=== PATIENT | female | born 1950 | race Caucasian/White ===

== ENCOUNTER 2018-08-01 20:03 | Inpatient (IN) | payer OTHER ==
[~2018-08-01] VITALS: Ht 162.6 cm; Wt 77.2 kg
[~2018-08-01 20:03] MED LIST: AMLODIPINE BESY10 MG PO; ASPIR 8181 MG PO; AZITHROMYCIN 2250 MG PO; B-12 COMPL1000 MCG/1 INJECTION; CARISOPRODOL 3350 M1 PO; CARISOPRODOL 3350 MG PO; COZAAR 50 MG TA50 M2 PO; ESTRADIOL 1 MG T1 M1 PO; ETODOLAC500 MG PO; FENOFIBRATE134 MG PO; FENOFIBRATE160 MG PO; FISH OIL 1,001000 M2 PO; HYDROCHLOROTHIA25 M2 PO; LEVOTHYROXIN0.075 MG PO; LISINOPRIL-HCT1 EAC1 PO; LISINOPRIL20 MG PO; LOPRESSOR25 PO; METOPROLOL SUCC25 M1 PO; MOBIC7.5 MG PO; PRILOSEC 10MG C10 MG PO; REQUIP0.5 MG PO; SIMVASTATIN40 MG PO; VALIUM5 MG PO; VENTOLIN HFA 1818 GM INH; VITAMIN D5000 UNI1 PO; ZOLOFT50 MG PO
[2018-08-01 20:13] VITALS: BP 168/77
[2018-08-01 20:47] LABS: ABSOLUTE EOSINOPHILS 0.2 thou/uL (0.0-0.7); ABSOLUTE LYMPHOCYTES 1.2 thou/uL (0.8-5.3); ABSOLUTE MONOCYTES 0.3 thou/uL (0.0-1.2); HEMATOCRIT 35.7 % (37.0-47.0); HEMOGLOBIN 12.1 gm/dL (12.0-15.0); MCV 91.7 fL (80.0-100.0); RDW-CV 12.9 % (10.5-14.5); WBC 3.7 thou/uL (4.0-11.0)
[2018-08-01 20:50] LABS: BASOPHILS 1.1 %; EOSINOPHILS 5.4 %; LYMPHOCYTES 31.6 %; MCHC 33.8 g/dL (28.0-37.0); MONOCYTES 8.8 %; MPV 8.3 fl. (7.2-11.1); NUCLEATED RBCS 0 /100WBC; PLATELET COUNT* 253 thou/uL (150-400); POLYS 53.1 %; RBC 3.89 mil/uL (4.20-5.00)
[2018-08-01 20:54] LABS: ANION GAP 8 mmol/L (7-16); BUN 15 mg/dL (7-18); CALCIUM 9.5 mg/dL (8.5-10.1); CHLORIDE 104 mmol/L (98-107); CO2 29 mmol/L (21-32); GLUCOSE 119 mg/dL (70-99); POTASSIUM 3.6 mmol/L (3.5-5.1); SODIUM 141 mmol/L (136-145)
[2018-08-01 20:56] LABS: PROTIME 10.3 Seconds (9.20-11.50)
[2018-08-01 21:05] LABS: ALBUMIN 3.8 g/dL (3.4-5.0); ALKALINE PHOSPHATASE 43 U/L (46-116); LIPASE 111 U/L (73-393); NT-PRO BRAIN NAT PEPTIDE 689 pg/mL (<300); SGOT 18 U/L (15-37); SGPT 26 U/L (30-65); TOTAL BILIRUBIN 0.2 mg/dL (<0.1-1.0); TOTAL PROTEIN 7.1 g/dL (6.4-8.2); TROPONIN-I LEVEL <0.06 ng/mL (<0.06)
[2018-08-01 21:55] LABS: PLATELET ESTIMATE ADEQUATE
[2018-08-02 04:38] VITALS: BP 138/65
--- NOTE | 2018-08-02 04:54 | NUR ---
PT IS RESTING QUIETLY WITH FAMILY AT BEDSIDE. RESP REG AND UNLABORED SKIN W/D NO C/O OF SOB OR CHEST PAIN. NO ACUTE DISTRESS NOTED. PT HAS AMBULAED X3 TO RESTROOM THIS SHIFT. MONITORS INTACT WITH ALARMS SET. WILL CONTINUE TO MONITOR
[2018-08-02 08:55] VITALS: BP 139/65
--- NOTE | 2018-08-02 10:15 | NUR ---
PT RETURNING FROM CT SCAN
[2018-08-02 12:50] VITALS: BP 164/72
--- NOTE | 2018-08-02 13:11 | NUR ---
PT GIVEN LUNCH TRAY.
[2018-08-02 13:26] VITALS: BP 164/72
[2018-08-02 14:39] VITALS: BP 153/88
--- NOTE | 2018-08-02 14:41 | NUR ---
PT ADMITTED TO ROOM 223 AROUND 1430 WITH DX CP WITH HYPERTENSIVE URGENCY. PT DENIES CP AT THIS TIME. CARDIOLOGY CONSULTED. ANTICIPATE STRESS TEST TOMORROW. TELE SB TO SR. RATE 55-65 BPM. NO OTHER CONCERNS AT THIS TIME. CLWR. WCTM.
--- NOTE | 2018-08-02 15:40 | EKG ---
[place] [address] ELECTROCARDIOGRAM REPORT Name: JAMAR ARRIOLA Room: [address] ADM IN .R.#: [id number] Admission: 08/01/18 Attend Phys: Rissa Olson MD Discharge: Date of : 48 Report #: [id number] THIS REPORT FOR: //name// [facility] ED Test Date: 2018-08-01 Test Time: 20:09:10 Pat Name: JAMAR ARRIOLA Department: Room: [facility] Gender: F Hunting And Fishing Guide: MS : 1950 Requested By: Antoinette Shell Order Number: [id number] MD: Laz Mayorga Measurements Intervals [place] Rate: 79 P: 49 [place]: 186 QRS: 28 QRSD: 94 T: 88 QT: 374 QTc: 429 Interpretive Statements Sinus rhythm Probable left atrial enlargement Repol abnrm suggests ischemia, lateral leads Compared to ECG 11/16/2016 06:20:25 Early repolarization now present Possible ischemia now present T-wave abnormality no longer present Electronically Signed On 08-02-2018 15:40:07 CDT by Laz Mayorga [email or web address] <ELECTRONICALLY SIGNED> By: Laz Mayorga MD, FAC 08/02/18 1540 08 08 Laz Mayorga MD, [facility] /EPI
[2018-08-02 20:00] VITALS: BP 125/63
[2018-08-03] VITALS: BP 116/49
[2018-08-03 04:00] VITALS: BP 115/55
[2018-08-03 05:49] LABS: CHOLESTEROL 189 mg/dL (<200); HDL CHOLESTEROL 38 mg/dL (>40); LDL CHOLESTEROL 116 mg/dL (<100); TRIGLYCERIDE 179 mg/dL (<150); VLDL 36 mg/dL (<40)
[2018-08-03 05:50] LABS: SERUM ASSESSMENT Clear
--- NOTE | 2018-08-03 07:43 | NUR ---
PT CARE ASSUMED AT 1930. SAT MAINTAINED IN RA. ALERT AND ORIENTED X4. CALL LIGHT WITHIN REACH AND BED IN LOW POSITION. C/O PAIN, MEDICATION GIVEN PER EMAR. HOURLY ROUNDING DONE FOR PT SAFETY.
[2018-08-03 08:00] VITALS: BP 166/68
--- NOTE | 2018-08-03 09:50 | CON ---
[address] [address] CONSULTATION Name: JAMAR ARRIOLA Room: [address] IN .R.#: [id number] Admission: 08/01/18 Attend Phys: Rissa Olson MD Discharge: Date of : 48 Report #: [id number] THIS REPORT FOR: //name// CC: Jose Enrique Owen CARDIOLOGY CONSULTATION INDICATION: Chest pain, arm pain and palpitations. 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 From the patient's description, it sounds as if she may have had an anomalous takeoff of coronary artery, traversing between the pulmonary artery and aorta leading to symptoms. Because of this in 2006, she had single-vessel coronary artery bypass grafting. Subsequent to that, she reported no further cardiac symptoms until now. Yesterday morning, she had what was described as a fast heart rate with associated flushing and diaphoresis. She also had some dull chest aching and pain from her elbow to her left hand. She had mild nausea, but no vomiting. She denied any fever, cough, diarrhea or other complaints. Symptoms resolved. In the Emergency Room, the patient was noted to be fairly hypertensive. At the time of my interview, she was pain free. A CT of the chest showed no evidence of pulmonary embolus. Risk factors include hypertension and dyslipidemia. PAST MEDICAL HISTORY: 1. 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 2. Hysterectomy. 3. Cholecystectomy. 4. Tubal ligation. 5. Anxiety. 6. Hypertension. 7. Hyperlipidemia. HOME MEDICATIONS: Albuterol q.4 hours p.r.n., estradiol 1 mg 2 tablets daily, aspirin 81 mg daily, vitamin D 5000 units daily, Requip 0.5 mg at bedtime, Zoloft 100 mg daily, metoprolol tartrate 50 mg b.i.d., losartan 100 mg daily, fish oil 1000 mg b.i.d., omeprazole 40 mg daily, amlodipine 10 mg daily, Soma 350 mg 4 times a day p.r.n., levothyroxine 0.075 mg daily, simvastatin 40 mg at bedtime, fenofibrate 134 mg daily. ALLERGIES: CODEINE AND MORPHINE. FAMILY HISTORY: The patient's father had heart disease in his 70s. SOCIAL HISTORY: The patient quit smoking remotely. [place] [address] CONSULTATION Name: JAMAR ARRIOLA Room: [address]#: [id number] Admission: 08/01/18 Attend Phys: Rissa Olson MD Discharge: Date of : 48 Report #: [id number] PHYSICAL EXAMINATION: VITAL SIGNS: Blood pressure 164/72, pulse 69 and regular. GENERAL: This is a pleasant lady who is in no distress. Mood and affect appropriate. HEENT: Extraocular muscles intact. Mucous membranes are moist. NECK: Shows no jugular venous distention. There are no carotid bruits. CHEST: Reveals clear lung gardner. CARDIOVASCULAR: Reveals regular rhythm without gallop or murmur. ABDOMEN: Reveals normal bowel sounds. The abdomen is soft, nontender. EXTREMITIES: Shows no edema. Peripheral pulses are 2+ and easily palpable. SKIN: Dry. LABORATORY DATA: Reviewed. Electrolytes within normal limits. BUN 15, creatinine 1.0. Serum glucose 119. LFTs within normal limits. Troponin less than 0.06 on 2 separate occasions, third troponin pending. NT-proBNP 689. White blood cell count 3.7, hemoglobin 12.1, platelet count 253,000. CTA of the chest shows no evidence of PE. Chest x-ray is clear. IMPRESSION AND RECOMMENDATIONS: 1. Chest pain. Enzymes thus far are unremarkable. She does have a history of cardiac risk factors including hypertension and dyslipidemia. She has a remote history of coronary artery bypass grafting for anomalous coronary. I believe proceeding with noninvasive stress testing would be in order at this time. 2. Hypertension. We will adjust antihypertensive medications in an effort to improve blood pressure. 3. Hyperlipidemia. Continue medications as outlined above. We will repeat fasting lipid profile at this time. 4. Palpitations. Thus far, in telemetry she has shown sinus rhythm. We will continue telemetry monitoring at this time. <ELECTRONICALLY SIGNED> By: Laz Mayorga MD, FACC 08/03/18 0950 1356 [id number] Mayorga MD, FACC /nt
[2018-08-03 12:00] VITALS: BP 131/69
[2018-08-03] MEDS ORDERED: CARVEDILOL25 MG PO (12:03)
--- NOTE | 2018-08-03 13:09 | NUR ---
Pt is A&O. Resides at home with . Normally active and independent. No DME. No hx of HH or SNF. Hx of cardiac rehab. Pt states that she will have a stress test today, goal is home at sd. Pt informed that she had a home pap approx 2-3 years ago through [facility], but had it returned about 1 month after it was issued. Pt would like to see if she is able to have one issued again. CM contacted Gianna at [facility], faxed Gianna jameson to f/u and determine what is needed to have a new pap issued. Following.
--- NOTE | 2018-08-03 15:52 | NUR ---
ASSUMED PT CARE AT 0800. AOX4, UP AD PAULO. 02 SAT 90'S RA. PT FOR CARDIAC STRESS TEST. PT ADBOMEN SOFT AND ROUND. LAST BM 08/02/18. IV ACCESS INTACT. PT VSS, AM ASSESSMENT CHARTED. MEDS GIVEN PER APR. HOURLY ROUNDING OBSERVED. CALL LIGHT WITHIN REACH WILL CONTINUE TO MONITOR.
[2018-08-03 16:00] VITALS: BP 145/75
[2018-08-03 17:53] VITALS: BP 145/75
--- NOTE | 2018-08-03 17:57 | CARDNUC ---
[place] [address] CARDIAC NUCLEAR IMAGING REPORT Name: JAMAR ARRIOLA Room: [address] IN [facility]#: [id number] Admission: 08/01/18 Attend Phys: Rissa Olson, Discharge: Date of : 48 Date of Service: 08/03/18 1757 Report #: [id number] THIS REPORT FOR: //name// APPROVED REPORT Imaging Protocol: Rest Tc-99m/Stress Tc-99m 1 day Study performed: 08/02/2018 13:40:00 Indication: Chest pain, Dyspnea Patient Location: In-Patient Room #: 223 Stress Tech: Aggie Montalvo Stress Nurse: Sarah Fink RN NM Tech:OFELIA Alvarez Ht: 5 ft 4 in Wt: 166 lbs BSA: 1.81 m2 BMI: 28.49 Medical History Medical History: Angina, CABG R/T CORONARY ANOMALY, SOA, Former Smoke, Hyperlipidemia, Fatigue, HTN. Medications: NTG, ATORVASTATIN, COREG, NORVASC, ASA 81 MG, FENOFIBRATE, LOSARTAN. Allergies: MORPHINE, CODEINE. Cardiac Risk Factors: Age, FHX of CAD, Hyperlipidemia, HTN, SOB, Tobacco History (Current/Recent). Previous Cardiac Procedures: CABG R/T CORONARY ANOMALY/ DEFECT. Pretest Chest Pain Characteristics: No chest pain Exercise History: Indeterminate Physical Disabilities: WEAKNESS/FATIGUE, SOA. Meds Held (24 hrs): COREG, NTG. Resting Data Rest SPECT myocardial perfusion imaging was performed in supine position 30 minutes following the intravenous injection of 11.1 mCi of Tc-99m Sestamibi. Time of rest injection: 1300 Date: 08/03/2018 The images were gated to evaluate regional wall motion and calculate left ventricular ejection fraction. Administration Route: IV Administration Site: Right AC Pharmacologic Stress Pharmacologic stress test was performed by injecting Regadenoson 0.4 [place] [address] CARDIAC NUCLEAR IMAGING REPORT Name: JAMAR ARRIOLA Room: [address] IN [facility]#: [id number] Admission: 08/01/18 Attend Phys: Rissa Olson, Discharge: Date of : 48 Date of Service: 08/03/18 1757 Report #: [id number] mg IV push over 10-15 seconds immediately followed by the intravenous injection of 33.1 mCi of Tc-99m Sestamibi. Time of stress injection: 1440 Date: 08/03/2018 Administration Route: IV Administration Site: Right AC Gated Stress SPECT was performed 40 minutes after stress injection. The images were gated to evaluate regional wall motion and calculate left ventricular ejection fraction. Prone imaging was performed. Stress Test Details Stress Test: Pharmacologic stress testing performed using 0.4 mg of regadenoson per 5 mL given IV over 10 seconds. Reason for pharmacologic stress test: physical limitation, SOA.. HR Max Heart Rate (APMHR): 152 bpm Resting HR: 91 bpm Target HR (85% APMHR): 129 bpm Max HR Achieved: 141 bpm % of APMHR: 92 Recovery HR: 113 bpm BP Resting BP: 168/81 mmHg Max BP: 180/87 mmHg Recovery BP: 174/84 mmHg ECG Resting ECG: Sinus Rhythm Stress ECG: Sinus Tachycardia ST Change: None Arrhythmia: None Recovery ECG: Sinus Rhythm Recovery ST Change: None Recovery Arrhythmia: None Clinical Reason for Termination: Completed protocol Stress Symptoms: None Exercise duration: 0 min 0 sec Exercise capacity: 1.00 METs The patient had no significant symptoms with Lexiscan infusion. Nurse Comments 67 YEAR OLD FEMALE INPATIENT PRESENTED WITH RECENT [place] [address] CARDIAC NUCLEAR IMAGING REPORT Name: JAMAR ARRIOLA Room: [address]#: [id number] Admission: 08/01/18 Attend Phys: Rissa Olson, Discharge: Date of : 48 Date of Service: 08/03/18 1757 Report #: [id number] PATIENT TOLERATED SITTING LEXISCAN WELL. RECOVERY UNREMARKABLE WITH PO CAFFEINE, EFFECTIVE. PATIENT ESCORTED VIA WHEELCHAIR BY STAFF TO NUCLEAR MEDICINE FOR IMAGES. PATIENT WAS STABLE WITH NO COMPLAINTS AT THAT TIME. Stress ECG Conclusion The baseline 12-lead EKG shows sinus rhythm with nonspecific ST segment depression. EKGs obtained during and post Lexiscan infusion show sinus rhythm and sinus tachycardia with nonspecific ST segment depression that is not significantly changed from baseline EKG. There were no stress-induced arrhythmias. Study Quality Study: Good Artifact: No artifact Study Data At rest, the left ventricular ejection fraction was 89%.. Post stress, the left ventricular ejection was 83%.. TID = 0.91. Perfusion Normal left ventricular perfusion. Wall Motion Normal left ventricular wall motion. Nuclear Conclusion ECG Findings: non-diagnostic Clinical Findings: negative for ischemia Nuclear Findings: negative for ischemia Exercise Capacity: not assessed Left Ventricular Function: normal Risk Study: low Myocardial perfusion images show no defect to suggest infarct or ischemia. Left ventricular systolic function appears normal on gated studies. This is a low risk study. <Conclusion> The baseline 12-lead EKG shows sinus rhythm with nonspecific ST segment depression. EKGs obtained during and post Lexiscan infusion show sinus rhythm and sinus tachycardia with nons[place] [address] CARDIAC NUCLEAR IMAGING REPORT Name: JAMAR ARRIOLA Room: [address] IN .#: [id number] Admission: 08/01/18 Attend Phys: Rissa Olson, Discharge: Date of : 48 Date of Service: 08/03/18 1757 Report #: [id number] depression that is not significantly changed from baseline EKG. There were no stress-induced arrhythmias. <ELECTRONICALLY SIGNED> By: Laz Mayorga MD, FACC 08/03/181756 56 56 Laz Mayorga MD, FACC /INF
--- NOTE | 2018-08-03 18:42 | NUR ---
DISCHARGED PLAN DISCUSSED WITH PT. PT HAD CARDIAC STRESS TEST, CARDIOLOGY OK TO DC. IV, TELE REMOVED. REMINDED TO FOLLOW UP WITH PCP, CARDIOLOGY. ALL BELONGINGS PACKED AND CHECKED. LEFT THE UNIT AMBULATORY AT 1840
== END 2018-08-03 18:48 | disposition home or self-care (01) | DRG 305 ==
LOC: M.ERS 20:03 → M.TBA-ER 21:40 → M.2W 08-02 14:30
PROVIDERS: Internal Medicine Cardiovascular Disease; Personal Emergency Response Attendant; ADMIT Internal Medicine
DX: I16.0 Hypertensive urgency (principal); I10 Essential (primary) hypertension; R07.9 Chest pain, unspecified; I25.10 Atherosclerotic heart disease of native coronary artery without angina pectoris; E78.5 Hyperlipidemia, unspecified; E78.00 Pure hypercholesterolemia, unspecified; F41.9 Anxiety disorder, unspecified; Z90.710 Acquired absence of both cervix and uterus; Z90.49 Acquired absence of other specified parts of digestive tract; Z79.82 Long term (current) use of aspirin; Z79.899 Other long term (current) drug therapy; Z88.0 Allergy status to penicillin; Z95.1 Presence of aortocoronary bypass graft; Z82.49 Family history of ischemic heart disease and other diseases of the circulatory system; Z87.891 Personal history of nicotine dependence

== ENCOUNTER 2020-07-20 12:37 | Inpatient (IN) | payer OTHER ==
[~2020-07-20] VITALS: Ht 162.6 cm; Wt 76.7 kg
[~2020-07-20 12:37] MED LIST changes: +CARVEDILOL25 MG PO
[2020-07-20 12:42] VITALS: BP 150/73
[2020-07-20 13:26] LABS: ABSOLUTE EOSINOPHILS 0.2 thou/uL (0.0-0.7); ABSOLUTE MONOCYTES 0.4 thou/uL (0.0-1.2); ABSOLUTE NEUTROPHILS 2.5 thou/uL (1.6-8.1); BASOPHILS 0.8 %; EOSINOPHILS 4.4 %; HEMATOCRIT 31.1 % (37.0-47.0); HEMOGLOBIN 10.6 gm/dL (12.0-15.0); LYMPHOCYTES 24.9 %; MCHC 33.9 g/dL (28.0-37.0); MCV 91.4 fL (80.0-100.0); MONOCYTES 10.5 %; MPV 7.8 fl. (7.2-11.1); NUCLEATED RBCS 0 /100WBC; PLATELET COUNT* 248 thou/uL (150-400); POLYS 59.4 %; RBC 3.41 mil/uL (4.20-5.00); WBC 4.2 thou/uL (4.0-11.0)
[2020-07-20 13:35] LABS: CREATININE 1.2 mg/dL (0.6-1.3); POTASSIUM 4.2 mmol/L (3.5-5.1)
[2020-07-20 13:44] LABS: ALBUMIN 3.2 g/dL (3.4-5.0); MAGNESIUM 1.7 mg/dL (1.8-2.4); TOTAL BILIRUBIN 0.1 mg/dL (<0.1-1.0); TOTAL PROTEIN 6.4 g/dL (6.4-8.2)
[2020-07-20 15:30] VITALS: BP 148/65
[2020-07-20 16:05] VITALS: BP 163/71
[2020-07-21] VITALS (14 sets, daily range): BP systolic 93–177; BP diastolic 38–77
[2020-07-21 04:28] LABS: ABSOLUTE BASOPHILS 0.1 thou/uL (0.0-0.2); ABSOLUTE EOSINOPHILS 0.2 thou/uL (0.0-0.7); ABSOLUTE LYMPHOCYTES 1.1 thou/uL (0.8-5.3); ABSOLUTE MONOCYTES 0.4 thou/uL (0.0-1.2); ABSOLUTE NEUTROPHILS 2.3 thou/uL (1.6-8.1); BASOPHILS 1.3 %; EOSINOPHILS 5.8 %; HEMATOCRIT 29.5 % (37.0-47.0); LYMPHOCYTES 26.1 %; MCH 31.3 pg (26.0-34.0); MONOCYTES 10.2 %; NUCLEATED RBCS 0 /100WBC; PLATELET COUNT* 234 thou/uL (150-400); POLYS 56.6 %; RDW-CV 13.2 % (10.5-14.5)
[2020-07-21 04:31] LABS: CALCIUM 8.6 mg/dL (8.5-10.1); POTASSIUM 4.2 mmol/L (3.5-5.1)
--- NOTE | 2020-07-21 11:05 | EKG ---
[place] [address] ELECTROCARDIOGRAM REPORT Name: JAMAR ARRIOLA Room: [address] ADM IN .R.#: [id number] Admission: 07/20/20 Attend Phys: Prince Ibarra, Discharge: Date of : 48 Date of Service: 07/20/20 1243 Report #: [id number] THIS REPORT FOR: //name// [facility] ED Test Date: 2020-07-20 Test Time: 12:43:03 Pat Name: JAMAR ARRIOLA Department: Room: [facility] Gender: F Transformation Specialist: KEVEN : 1950 Requested By: Martin Boudreaux Order Number: [id number] MD: Sb Dixon Measurements Intervals [place] Rate: 63 P: 60 SD: 188 QRS: 39 QRSD: 97 T: 55 QT: 404 QTc: 414 Interpretive Statements Sinus rhythm Compared to ECG 08/01/2018 20:09:10 Early repolarization no longer present Possible ischemia no longer present Electronically Signed On 07-21-2020 11:05:08 CDT by Sb Dixon [email or web address] <ELECTRONICALLY SIGNED> By: Sb Dixon MD, [facility] 07/21/20 1105 1243 1243 Sb Dixon MD, [facility] /EPI
--- NOTE | 2020-07-22 11:33 | CARD ---
[address] [address] CARDIAC CATH REPORT Name: JAMAR ARRIOLA Room: [address] IN [facility]#: [id number] Admission: 07/20/20 Attend Phys: Prince Ibarra MD Discharge: 07/21/20 Date of : 48 Report #: [id number] THIS REPORT FOR: cc: Jose Enrique Martinez Bradley L. DO Blick, David R. MD [facility] ~ APPROVED REPORT Study performed: 07/21/2020 09:15:06 Patient Details Patient Status: In-Patient Room #: 211 The patient is a 69 year-old female Event Personnel Sb Dixon Factory Maintenance Technician, Alisa Monreal RN RN, Angel Wells RECOVERY ROOM NURSE Scrub, Soniya Qureshi RTR Monitor Procedures Performed Art Access - R femoral artery Left Heart Cath Coronaries, Bypass Grafts Supravalvular Aortography Injection Hemostasis w/ Angioseal Indication Chest pain Risk Factors Arterial Hypertension, Hypercholesterolemia, Coronary Artery Disease Previous Procedures/Diagnoses Previous CABG Admission/Lab Medications/Medications given during procedure Midazolam (Versed) IV 1 mg, Oxygen Nasal cannula 2 l per min, 0.9% Sodium Chloride IV 75 ml per hr, Lidocaine Subcut 14 ml, Zofran (Ondansetron) IV 4 mg, Fentanyl IV 25 mcg Procedure Narrative The patient was brought electively to the Cardiac Catheterization Laboratory and was prepped and draped in a sterile manner. The right femoral was infiltrated with 2% Lidocaine subcutaneous anesthesia. IV conscious sedation was used throughout [place] [address] CARDIAC CATH REPORT Name: JAMAR ARRIOLA Room: [address]#: [id number] Admission: 07/20/20 Attend Phys: Prince Ibarra MD Discharge: 07/21/20 Date of : 48 Report #: [id number] monitoring and was performed in the presence of a registered nurse who was an independent trained observer other than the physician performing the procedure. A Ultimum 6 Fr sheath was inserted into the right femoral artery. Coronary angiography was performed using coronary diagnostic catheters. The right coronary system was accessed and visualized with a Diagnostic 6 Fr JR 4 catheter. The left ventricle was accessed and visualized with a Diagnostic 6 Fr Pigtail catheter. Left ventricular/Aortic Valve gradient assessed via catheter pullback. Left ventriculogram was performed in RYDER projection. An aortogram of the ascending aorta was performed. Closure device was deployed with a 6 Fr Angioseal STS 6Fr. The patient tolerated the procedure well and there were no complications associated with the procedure. There was no hematoma. The EDWARDS graft to the Circ and OM was accessed and visualized with a Diagnositc 6 Fr IM catheter. The MEI was accessed and visualized with a Diagnostic 6 Fr IM catheter. Aortic root injection was performed with a pigtail catheter. Intraoperative Conscious Sedation Sedation start time: 952 Case end Time: 1036 Fentanyl 50 mcg Versed 2 mg Fluoro Time: 7.2 minutes Dose: DAP 53980 cGycm2 743 mGy Contrast Type and Amount: Omnipaque 220 ml Coronary Angiography The patient's coronary anatomy is right dominant. [place] Artery Percent Stenosis Grafts (Complete if Previous CABG=Yes: Percent Stenosis) EDWARDS graft to the 3rd marginal artery of the circumflex had a 70% mid stenosis noted. EDWARDS catheter could not be advanced to the takeoff of the MEI, but a flush injection into the right inominate artery appeared to show that the MEI was not used for a bypass conduit. Diagnostic Cath Left Main No left main artery was noted to lee from the left coronary cusp. 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 Circumflex Anomalous circumflex was noted [place] [address] CARDIAC CATH REPORT Name: JAMAR ARRIOLA Room: [address]#: [id number] Admission: 07/20/20 Attend Phys: Prince Ibarra MD Discharge: 07/21/20 Date of : 48 Report #: [id number] RCA. OM1 60% ostial stenosis OM3 50% ostial stenosis Right Coronary 30% proximal stenosis Left Ventriculography The left ventricular ejection fraction is estimated to be 60-65%. Left ventricular wall motion abnormalities are not present. There is no mitral insufficiency. Aortic root injection showed no arotic insufficiency and no takeoff of SVG's were noted. Hemodynamics The aortic pressure is 196/84 mmHg with a mean of 128 mmHg. The left ventricular pressure is 213/10 mmHg with a mean of mmHg. The left ventricular end diastolic pressure is 15 mmHg. There was no gradient across the aortic valve upon pullback. Pullback from the left ventricle to the aorta revealed no gradient across the aortic valve. Conclusion 1. 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 2. 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 3. EDWARDS graft to the 3rd marginal artery had a 70% mid stenosis. 4. LVEF 60-65% 5. suspect noncardiac chest pain Recommendations [facility] <ELECTRONICALLY SIGNED> By: Sb Dixon MD, FACC 07/22/20 1133 1133 1133Dpatrick Dixon MD, FACC /INF
--- NOTE | 2020-07-23 13:50 | CON ---
[address] [address] CONSULTATION Name: JAMAR ARRIOLA Room: [address] IN M.R.#: [id number] Admission: 07/20/20 Attend Phys: Prince Ibarra MD Discharge: 07/21/20 Date of : 48 Report #: [id number] THIS REPORT FOR: cc: Jose Enrique Martinez Bradley L. DO Blick, David R. MD [facility] ~ DOC #: [id number] cc: DO Sb Garcia MD [facility] DATE OF CONSULTATION: 07/21/2020 CARDIOLOGY CONSULTATION HISTORY OF PRESENT ILLNESS: The patient is a 69-year-old white female who I was asked to see in the hospital today after she complained of chest pain. The patient apparently presented in 2006 with fatigue. She was found to have coronary artery disease at [facility]. She eventually underwent coronary artery bypass surgery with a single EDWARDS graft to the LAD. She has done well since that time. She has been followed by my partner, Dr. Laz Mayorga. She actually underwent a nuclear stress test 2 years ago in 07/2018, here at [place] that showed ejection fraction of at least 80% with normal perfusion and no evidence of ischemia. Stress test was performed by using Lexiscan. Recently, however, the patient has had recurrent chest pain. It is not related to exertion or meals. It occasionally occurs under her left armpit and goes into her breast. She denies any associated nausea, shortness of breath, diaphoresis. After an episode yesterday, her brought her to the hospital and she was admitted for further evaluation and treatment. She denied the pain being related to activity. It is not related to food. She has had no belching. Denies any fever or cough. She does get short of breath if she exerts herself and has occasional edema. She denies occasional lightheadedness. She notes occasional episodes where her heart rate will increase, but she has had no syncope. PAST MEDICAL HISTORY: Otherwise, she has had cholecystectomy, hysterectomy, lens implant, hypertension, hyperlipidemia. MEDICATIONS: Include, losartan, carvedilol, simvastatin, aspirin, Mobic for arthritis. ALLERGIES: SHE HAS A PREVIOUS INTOLERANCE TO CODEINE AND MORPHINE. FAMILY HISTORY: Her father of a heart attack. SOCIAL HISTORY: She is . She and her [place], [place] [address] CONSULTATION Name: JAMAR ARRIOLA Room: [address]#: [id number] Admission: 07/20/20 Attend Phys: Prince Ibarra MD Discharge: 07/21/20 Date of : 48 Report #: [id number] She is a retired hairdresser. She quit smoking 30 years ago. No alcohol abuse. REVIEW OF SYSTEMS: She has had no history of stroke, asthma, liver disease, kidney disease. She had a skin cancer removed in the past. She has arthritis in her hips. No chronic skin condition. No psychiatric illness. PHYSICAL EXAMINATION: GENERAL: Revealed an elderly female lying in bed. She appeared in no distress. VITAL SIGNS: She had a blood pressure of 120/60, pulse 60. She is afebrile. HEENT: She was anicteric. Conjunctivae are pink. Mucosa is moist. NECK: Veins were not distended. No carotid bruits. Neck supple. CHEST: Clear to auscultation. CARDIOVASCULAR: Regular rate and rhythm. No murmurs. ABDOMEN: Soft. EXTREMITIES: No edema. Posterior tibial pulse 2+ bilaterally. SKIN: My skin is cool and dry. NEUROLOGIC: Nonfocal. LABORATORY DATA: Her ECG showed a sinus rhythm with nonspecific ST segment changes noted. Her workup in the emergency room yesterday, she had a portable chest x-ray that showed normal heart size and clear lung gardner. Her laboratory in the emergency room yesterday included a creatinine of 1.0. Her liver function studies were normal. Troponin less than 0.06. BNP 662. In 2019, her cholesterol was 189, triglyceride 179, HDL 38, LDL 116. Her white blood cell count 4.0, hematocrit was 29.5, it was actually 28 in 2017. Previous workup included a ferritin in 2014 of 605. Her COVID antigen test was negative. IMPRESSION AND RECOMMENDATIONS: 1. Chest pain. Possible crescendo angina. The patient is scheduled for a stress test next week. I would recommend proceeding with cardiac catheterization. 2. Previous coronary artery bypass surgery. 3. Mild carotid stenosis. 4. Previous tobacco abuse. 5. Anemia. No history of bleeding. 6. Hypertension. The patient is on ARB and beta pedro. 7. Hyperlipidemia. The patient is on a statin drug. Sb Dixon MD [facility] [place] [address] CONSULTATION Name: JAMAR ARRIOLA Room: [address] IN M.R.#: [id number] Admission: 07/20/20 Attend Phys: Prince Ibarra MD Discharge: 07/21/20 Date of : 48 Report #: [id number] <ELECTRONICALLY SIGNED> By: Sb Dixon MD, [facility] 07/23/20 1350 0721 [id number] Dixon MD, [facility] /nt
== END 2020-07-21 17:17 | disposition home or self-care (01) | DRG 287 ==
LOC: M.ERS 12:37 → M.TBA-ER 14:07 → M.2W 15:42
PROVIDERS: Emergency Medicine Emergency Medical Services; ADMIT Internal Medicine; ATTEND Internal Medicine
PROC: 4A023N7 Measurement of Cardiac Sampling and Pressure, Left Heart, Percutaneous Approach (ICD-10-PCS; principal; 2020-07-21)
PROC: B2181ZZ Fluoroscopy of Left Internal Mammary Bypass Graft using Low Osmolar Contrast (ICD-10-PCS; principal; 2020-07-21)
PROC: B2111ZZ Fluoroscopy of Multiple Coronary Arteries using Low Osmolar Contrast (ICD-10-PCS; principal; 2020-07-21)
PROC: B2151ZZ Fluoroscopy of Left Heart using Low Osmolar Contrast (ICD-10-PCS; principal; 2020-07-21)
DX: R07.89 Other chest pain (principal); G25.81 Restless legs syndrome; E78.5 Hyperlipidemia, unspecified; I10 Essential (primary) hypertension; F41.9 Anxiety disorder, unspecified; E78.00 Pure hypercholesterolemia, unspecified; I25.10 Atherosclerotic heart disease of native coronary artery without angina pectoris; D64.9 Anemia, unspecified; I65.29 Occlusion and stenosis of unspecified carotid artery; Z20.822 Contact with and (suspected) exposure to COVID-19; Z96.1 Presence of intraocular lens; Z87.891 Personal history of nicotine dependence; Z90.49 Acquired absence of other specified parts of digestive tract; Z79.82 Long term (current) use of aspirin; Z79.899 Other long term (current) drug therapy; Z88.5 Allergy status to narcotic agent; Z95.1 Presence of aortocoronary bypass graft; Z90.710 Acquired absence of both cervix and uterus

== ENCOUNTER → 2020-07-23 | Outpatient (CLI) | payer OTHER | LOC: M.NUC 07-12 12:38 → M.RAD 14:07 | PROVIDERS: ATTEND Family Medicine | DX: Z12.31 Encounter for screening mammogram for malignant neoplasm of breast (principal); N64.89 Other specified disorders of breast ==